=== PATIENT | female | born 1935 | race Caucasian/White ===

== ENCOUNTER 2018-10-13 07:03 | Day surgery (SDC) | payer MEDICARE, OTHER ==
[~2018-10-13 07:03] MED LIST: Lactated Ringers 1,000 ML IV SCH
[2018-10-13] MEDS ORDERED: Bupivacaine 0.25%/EPINEPHrine 1:200,000 30 ML SDV ONE (08:34)
[2018-10-13] MEDS ORDERED: Acetaminophen 1,000 MG in Premix Bag 1 BAG IV ONE (09:51)
[2018-10-13] MEDS ORDERED: fentaNYL 100 MCG/2 ML SDV ONE (09:56)
[2018-10-13] MEDS ORDERED: Propofol 200 MG/20 ML SDV ONE (09:56)
[2018-10-13] MEDS ORDERED: Bupivacaine 0.25%/EPINEPHrine 1:200,000 30 ML SDV INJECT ONE ×2 (10:21)
[2018-10-13] MEDS ORDERED: ceFAZolin 1 GM Vial ONE (10:27)
[2018-10-13] MEDS ORDERED: Ketorolac 30 MG/ML SDV ONE (10:53)
[2018-10-13] MEDS ORDERED: Ondansetron 4 MG/2 ML SDV ONE (10:53)
[2018-10-13 16:27] VITALS: BP 148/72
--- NOTE | 2018-10-13 19:14 | OR ---
PREOPERATIVE DIAGNOSIS: Left inguinal hernia, indirect. POSTOPERATIVE DIAGNOSIS: Left inguinal hernia, indirect. PROCEDURE PROPOSED AND PROCEDURE DONE: Left indirect inguinal hernia repair, tension-free with mesh. INDICATIONS: This is an 82-year-old female with a moderate-sized left inguinal hernia that is becoming increasingly symptomatic and she comes in now for elective repair. TECHNIQUE: The patient was brought to the operative suite, given a spinal anesthetic per [employer], placed in the supine position. The left inguinal region was then sterilely prepped and draped. The skin was then locally anesthetized with 0.25% Marcaine with epinephrine and an oblique incision was made in the left groin, carried down through the subcutaneous tissue. The external oblique fascia was then opened along its direction of fibers through the external ring. The ilioinguinal nerve was isolated and preserved throughout the dissection. The patient was found to have an indirect hernia sac that was freed up from the surrounding structures. It was then reduced and held in place with a plug of mesh that was anchored with interrupted 0 Ethibond sutures. A piece of flat mesh was then placed across the inguinal floor after cutting it to the appropriate size and this was also anchored medially to the symphysis pubis, inferiorly to the inguinal ligament, superiorly to the internal oblique fascia, and then placed around the indirect defect. This was anchored with interrupted 0 Ethibond sutures as well. The nerve was then placed back in its normal position and the external oblique fascia was closed with a running 3-0 Vicryl. The subcutaneous tissues were reapproximated with interrupted 3-0 Vicryl and the skin closed with subcuticular stitch of 4-0 Vicryl. A sterile dressing was applied. She tolerated the procedure well with estimated blood loss of about 1-2 mL. She was taken back to day surgery in good condition. SCM: 10/13/2018 11:01:44 MODL: 10/13/2018 19:05:06 /[id number]
== END 2018-10-13 16:40 | disposition home or self-care (01) ==
LOC: VM.SDS 07:03
PROVIDERS: ATTEND Surgery
DX: K40.90 Unilateral inguinal hernia, without obstruction or gangrene, not specified as recurrent (principal); I10 Essential (primary) hypertension; E78.5 Hyperlipidemia, unspecified; M19.91 Primary osteoarthritis, unspecified site; Z87.891 Personal history of nicotine dependence; Z79.82 Long term (current) use of aspirin; Z79.899 Other long term (current) drug therapy
CPT/HCPCS: 00830; 49505; J0131; J0690; J1885; J2405; J2704; J3010; J7120